=== PATIENT | female | born 1955 | race African-American/Black ===

== ENCOUNTER 2018-11-16 20:25 | Emergency (ER) | payer MEDICARE, OTHER ==
[~2018-11-16] VITALS: Ht 162.6 cm; Wt 70.0 kg
[2018-11-16] MEDS ORDERED: SODIUM CHLORIDE 0.9% 1,000 ML IV ONE (23:05)
[2018-11-16] MEDS ORDERED: KETOROLAC 30MG/ML VIAL IV STA (23:05)
[2018-11-16 23:50] LABS: BASOPHILS % 0.8 % (0.0-2.0); EOSINOPHILS % 5.3 % (0.0-5.0); HEMATOCRIT. 37.2 % (36.0-48.0); HEMOGLOBIN. 12.1 g/dL (12.0-16.0); MEAN CORPUSCULAR HEMOGLOBIN 26.9 pg (28.0-32.0); MEAN CORPUSCULAR VOLUME 82.9 fL (81.0-99.0); MEAN PLATELET VOLUME 7.8 fl (7.4-10.4); MONOCYTES % 13.7 % (2.0-8.0); NEUTROPHILS % 43.2 % (40.0-76.0); PLATELET 304 x1000/uL (130-400); RED BLOOD CELL COUNT 4.49 mill/uL (4.2-5.4); RED CELL DISTRIBUTION WIDTH 13.5 % (11.6-14.6)
[2018-11-16 23:57] LABS: CLARITY URINE CLEAR (CLEAR); COLOR URINE YELLOW (YELLOW); KETONES URINE NEGATIVE (NEGATIVE); LEUKOCYTE ESTERASE URINE NEGATIVE (NEGATIVE); NITRITE URINE NEGATIVE (NEGATIVE); OCCULT BLOOD URINE NEGATIVE (NEGATIVE); PH URINE 6.5 (4.5-8.0); PROTEIN URINE NEGATIVE (NEGATIVE); SPECIFIC GRAVITY URINE 1.016 (1.005-1.030)
[2018-11-16 23:59] LABS: CHLORIDE 108 mEq/L (98-107)
[2018-11-17] MEDS ORDERED: GUAIFENESIN/CODEINE 200-20MG/10ML UDC PO ONE (02:30)
[2018-11-17] MEDS ORDERED: GUAIFENESIN/CODEINE 100-10MG/5ML UDC PO NR (02:45)
[2018-11-17 02:52] VITALS: BP 142/83
== END 2018-11-17 03:01 | disposition home or self-care (01) ==
LOC: ER 20:25 → CANBEDREQ 11-17 05:54
DX: M79.18 Myalgia, other site (principal); R53.1 Weakness; R11.2 Nausea with vomiting, unspecified; F17.210 Nicotine dependence, cigarettes, uncomplicated
CPT/HCPCS: 36415; 71045; 80053; 81003; 83605; 85025; 87804; 93005; 96361; 96374; 99284; J1885; J7030

== ENCOUNTER 2024-12-28 10:38 | Emergency (ER) | payer MEDICARE, OTHER ==
[~2024-12-28] VITALS: Ht 162.6 cm; Wt 80.0 kg
[2024-12-28 10:50] VITALS: O2SAT 98
[2024-12-28 11:25] VITALS: BP 128/84; PULSE 76; RESP 12; TEMP 36.7; O2SAT 99
[2024-12-28 11:34] LABS: CLARITY URINE CLOUDY (CLEAR); COLOR URINE YELLOW (YELLOW); GLUCOSE URINE NEGATIVE (NEGATIVE); KETONES URINE NEGATIVE (NEGATIVE); LEUKOCYTE ESTERASE URINE 2+ (NEGATIVE); NITRITE URINE NEGATIVE (NEGATIVE); OCCULT BLOOD URINE 3+ (NEGATIVE); PROTEIN URINE 2+ (NEGATIVE); SPECIFIC GRAVITY URINE 1.011 (1.005-1.030); UROBILINOGEN URINE 0.2 E.U./dL (0.2-1.0)
[2024-12-28 11:47] LABS: BACTERIA URINE TRACE; RBC URINE TNTC /hpf (0-2); SQUAMOUS EPITHELIAL CELL URINE 1+ /lpf (RARE/1+); WBC URINE 15-25 /hpf (0-2); YEAST URINE NONE SEEN
[2024-12-28] MEDS ORDERED: PHEN-815 MT (12:04)
[2024-12-28] MEDS ORDERED: SULF1TAB48 MT (12:04)
== END 2024-12-28 12:30 | disposition home or self-care (01) ==
LOC: ER 10:38
DX: N93.0 Postcoital and contact bleeding (principal); Z79.899 Other long term (current) drug therapy
CPT/HCPCS: 81003; 87077; 87186; 99283

== ENCOUNTER 2025-03-22 10:20 | Emergency (ER) | payer MEDICARE, OTHER ==
[~2025-03-22] VITALS: Ht 162.6 cm; Wt 71.0 kg
[~2025-03-22 10:20] MED LIST: PHEN-815 MT; SULF1TAB48 MT
[2025-03-22 10:31] VITALS: BP 148/85; TEMP 36.9; O2SAT 97
[2025-03-22 11:26] VITALS: PULSE 88; RESP 18; O2SAT 98
== END 2025-03-22 13:08 | disposition left against medical advice (07) ==
LOC: ER 10:29
DX: M79.605 Pain in left leg (principal); Z98.890 Other specified postprocedural states; Z53.21 Procedure and treatment not carried out due to patient leaving prior to being seen by health care provider

== ENCOUNTER 2025-03-22 13:04 | Emergency (ER) | payer MEDICARE, OTHER ==
[~2025-03-22] VITALS: Ht 157.5 cm; Wt 70.0 kg
[2025-03-22 13:09] VITALS: O2SAT 97
[2025-03-22 17:09] LABS: CLARITY URINE CLEAR (CLEAR); COLOR URINE YELLOW (YELLOW); GLUCOSE URINE NEGATIVE (NEGATIVE); KETONES URINE NEGATIVE (NEGATIVE); LEUKOCYTE ESTERASE URINE TRACE (NEGATIVE); NITRITE URINE POSITIVE (NEGATIVE); OCCULT BLOOD URINE NEGATIVE (NEGATIVE); PH URINE 6.0 (4.5-8.0); PROTEIN URINE TRACE (NEGATIVE); SPECIFIC GRAVITY URINE 1.020 (1.005-1.030); UROBILINOGEN URINE 1.0 E.U./dL (0.2-1.0)
[2025-03-22 17:23] LABS: BACTERIA URINE 3+; RBC URINE NONE SEEN /hpf (0-2); SQUAMOUS EPITHELIAL CELL URINE 1+ /lpf (RARE/1+)
[2025-03-22 17:33] LABS: *AMPHETAMINES SCREEN URINE NEGATIVE (NEGATIVE); *BARBITURATES SCREEN URINE NEGATIVE (NEGATIVE); *COCAINE SCREEN URINE NEGATIVE (NEGATIVE); CANNABINOID URINE SCREEN NEGATIVE (NEGATIVE); ECSTASY MDMA SCREEN URINE NEGATIVE (NEGATIVE); METHADONE URINE SCREEN NEGATIVE (NEGATIVE); OPIATES URINE SCREEN PRESUMPTIVE POSITIVE (NEGATIVE); PHENCYCLIDINE URINE SCREEN NEGATIVE (NEGATIVE)
[2025-03-22 19:48] LABS: *BENZODIAZEPINES SCREEN URINE NEGATIVE (NEGATIVE)
[2025-03-22 20:34] LABS: BASOPHILS % 0.8 % (0.0-2.0); EOSINOPHILS % 1.3 % (0.0-5.0); HEMATOCRIT. 40.7 % (36.0-48.0); HEMOGLOBIN. 13.1 g/dL (12.0-16.0); LYMPHOCYTES % 38.0 % (20.0-50.0); MEAN PLATELET VOLUME 7.6 fl (7.4-10.4); MONOCYTES % 8.1 % (2.0-8.0); NEUTROPHILS % 51.8 % (40.0-76.0); PLATELET 320 x1000/uL (130-400); RED BLOOD CELL COUNT 4.91 mill/uL (4.2-5.4); RED CELL DISTRIBUTION WIDTH 13.3 % (11.6-14.6)
[2025-03-22 21:01] LABS: CREATININE 0.8 mg/dL (0.6-1.0); UREA NITROGEN BLOOD 18 mg/dL (9-23)
[2025-03-22 21:02] LABS: ETHANOL BLOOD < 10 mg/dL (<10)
[2025-03-22] MEDS: CEPHALEXIN 250MG CAPSULE PO STA (22:00)
[2025-03-22] MEDS: CEPHALEXIN 250MG CAPSULE PO SCH (22:00)
[2025-03-22] MEDS: HALOPERIDOL LACTATE 5MG/ML VIAL IM ONE (23:20)
[2025-03-23] MEDS ORDERED: TRAZODONE HCL 50MG TABLET PO PRN (10:15)
[2025-03-23] MEDS: OLANZAPINE 5MG TABLET ODT PO SCH (10:30)
[2025-03-24 00:35] VITALS: BP 133/85; PULSE 74; RESP 18; TEMP 36.7; O2SAT 99
== END 2025-03-24 00:53 ==
LOC: ER 13:04
DX: R46.1 Bizarre personal appearance (principal); N39.0 Urinary tract infection, site not specified; Z79.899 Other long term (current) drug therapy; Z59.00 Homelessness unspecified; Z20.822 Contact with and (suspected) exposure to COVID-19; W10.9XXA Fall (on) (from) unspecified stairs and steps, initial encounter; Y93.89 Activity, other specified; Y92.89 Other specified places as the place of occurrence of the external cause; Y99.8 Other external cause status
CPT/HCPCS: 80305; 80048; 81003; 80307; 80329; 80320; 82140; 84443; 85025; 36415; 96372; 99285; 87426; J1630; G0480